=== PATIENT | male | born 1965 | race African-American/Black ===

== ENCOUNTER 2018-12-26 17:16 | Emergency (ER) | payer MEDICAID ==
[~2018-12-26] VITALS: Ht 180.3 cm; Wt 65.3 kg
[2018-12-26 17:28] VITALS: BP 107/62
--- NOTE | 2018-12-26 17:30 | NUR ---
EDITH KILPATRICK FROM [facility] C/O LOWER BACK PAIN RADIATES TO LOWER EXTREMITIES. HX:HIV, NEUROPATHY, MUSCLE ATROPHY. PATIENT A/OX1-2, BREATHING EVEN AND UNLABORED, NO SOB NOTED. ATTACHED TO THE MONITOR.
--- NOTE | 2018-12-26 17:55 | NUR ---
AMBULNOxana PRICE [phone] [facility] [id number]
--- NOTE | 2018-12-26 17:55 | NUR ---
SEEN BY DR. CASANOVA, CLEARED FOR DISCHARGE.
[2018-12-26] MEDS ORDERED: HYDROCODONE/APAP 5/325MG 1 EACH TABLET ONE (17:58)
[2018-12-26] MEDS ORDERED: HYDROCODONE/APAP 5/325MG 1 EACH TABLET PO ONE (18:00)
--- NOTE | 2018-12-26 18:00 | NUR ---
ETA 194*
--- NOTE | 2018-12-26 19:13 | NUR ---
ENDORSED TO JOSE VELÁZQUEZ FOR SHANNAN.
--- NOTE | 2018-12-26 19:59 | NUR ---
UPDATED AMBULNZ ETA 2015
== END 2018-12-26 20:26 | disposition home or self-care (01) ==
LOC: ER 17:19
DX: G89.29 Other chronic pain (principal); M54.5 Low back pain; F03.90 Unspecified dementia, unspecified severity, without behavioral disturbance, psychotic disturbance, mood disturbance, and anxiety; G62.9 Polyneuropathy, unspecified; Z60.2 Problems related to living alone

== ENCOUNTER 2019-06-20 15:39 | Inpatient (IN) | payer MEDICARE, OTHER ==
[~2019-06-20] VITALS: Ht 180.3 cm; Wt 64.9 kg
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
--- NOTE | 2019-06-20 16:12 | NUR ---
URINE SAMPLE SENT TO LAB.
[2019-06-20 16:16] LABS: BASOPHILS # (AUTO) 0.1 /CMM (0.0-0.2); BASOPHILS % (AUTO) 0.6 % (0.0-2.0); EOSINOPHILS % (AUTO) 8.4 % (0.0-6.0); HEMATOCRIT 46 % (39-51); HEMOGLOBIN 15.6 g/dL (13.5-17.5); LYMPHOCYTES # (AUTO) 2.8 /CMM (0.8-4.8); LYMPHOCYTES % (AUTO) 27.2 % (20.0-44.0); MEAN CORPUSCULAR HGB CONC 34 g/dl (31.0-36.0); MEAN CORPUSCULAR VOLUME 97 fL (80-96); MONOCYTES # (AUTO) 0.5 /CMM (0.1-1.30); MONOCYTES % (AUTO) 4.8 % (2.0-12.0); PLATELET COUNT (AUTO) 345 /CMM (150-450); RED BLOOD CELL COUNT(AUTO) 4.75 MIL/uL (4.5-6.0); WHITE BLOOD COUNT (AUTO) 10.2 K/uL (4.3-11.0)
[2019-06-20 16:22] LABS: APPEARANCE,URINE CLEAR (CLEAR); BILIRUBIN,URINE NEGATIVE (NEGATIVE); BLOOD, URINE NEGATIVE Ery/uL (NEGATIVE); COLOR,URINE YELLOW (YELLOW); KETONES,URINE NEGATIVE (NEGATIVE); LEUKOCYTE ESTERASE ,URINE NEGATIVE (NEGATIVE); NITRITE, URINE NEGATIVE (NEGATIVE); PH,URINE 5.5 (5.0-8.0); PROTEIN,URINE NEGATIVE (NEGATIVE); UGLUCOSE NEGATIVE (NEGATIVE); UROBILINOGEN,URINE 0.2 EU/dL (0.2)
[2019-06-20 16:24] LABS: CARBON DIOXIDE 31 mmol/L (21-32); CHLORIDE 103 mmol/L (98-107); CREATININE 0.8 mg/dL (0.6-1.3); GLUCOSE 84 mg/dL (74-106); SODIUM SERUM 139 mmol/L (136-145); UREA NITROGEN, BLOOD 17 mg/dL (7-18)
[2019-06-20 16:31] LABS: ALANINE AMINOTRANSFERASE 25 U/L (12-78); ALBUMIN 3.8 g/dL (3.4-5.0); ALKALINE PHOSPHATASE 70 U/L (46-116); ASPARTATE AMINOTRANSFERASE 12 U/L (15-37); BILIRUBIN,DIRECT 0.1 mg/dL (0.0-0.2); BILIRUBIN,TOTAL 0.3 mg/dL (0.2-1.0); SALICYLATE 2.9 mg/dL (2.8-20.0); TOTAL PROTEIN, SERUM 7.8 g/dL (6.4-8.2)
[2019-06-20 16:32] LABS: ALCOHOL, BLOOD < 3 mg/dL (0-0)
--- NOTE | 2019-06-20 16:42 | NUR ---
PATIENT GOING TO ROOM 215B
[2019-06-20] MEDS ORDERED: ACET-868 PO (17:46)
[2019-06-20] MEDS ORDERED: DOCU-141 PO (17:46)
[2019-06-20] MEDS ORDERED: DOLU50TA PO (17:46)
[2019-06-20] MEDS ORDERED: HYDR-4384 PO (17:46)
[2019-06-20] MEDS ORDERED: EMTR1TAB12 PO (17:46)
--- NOTE | 2019-06-20 17:48 | NUR ---
REPORT GIVEN TO JUANIS VELÁZQUEZ FOR SHANNAN.
--- NOTE | 2019-06-20 18:01 | NUR ---
PATIENT TRANSFERRED TO [facility]. NO DISTRESS NOTED.
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
--- NOTE | 2019-06-20 19:05 | NUR ---
GPS RN NOTE PER HISTORY & PHYSICAL RECORDS, PATIENT IS HIV POSITIVE & IS ON ROUTINE MEDICINES.
[2019-06-20 19:33] VITALS: BP 112/74
--- NOTE | 2019-06-20 19:36 | NUR ---
PT. WAS BROUGHT VIA A GURNEY AND TRANSPORTED BY ER STAFF. V/S TAKEN, CONTRABAND DONE AND DONE AZIZA MADE AWARE OF THE ADMISSION.
[2019-06-20 20:00] VITALS: BP 101/62
[2019-06-20 20:38] VITALS: BP 101/62
--- NOTE | 2019-06-20 20:52 | NUR ---
GPS RN NOTE CALLED [facility] , SPOKE TO AMELIA JANG FOR MED RECON & STATED SHE WILL RECONCILE THE MEDS.
[2019-06-21] MEDS ORDERED: MAGNESIUM HYDROXIDE 30 ML UDC PO PRN (00:30)
[2019-06-21] MEDS ORDERED: BLOOD SUGAR DIAGNOSTIC 1 EACH STRIP IN ONE (00:30)
[2019-06-21] MEDS ORDERED: ACETAMINOPHEN 325 MG TABLET PO PRN (00:30)
[2019-06-21] MEDS ORDERED: TEMAZEPAM 7.5 MG CAPSULE PO PRN (00:30)
--- NOTE | 2019-06-21 01:16 | NUR ---
REFUSED ACCU CHECK PATIENT REFUSED ACCU CHECK AT THIS TIME.
--- NOTE | 2019-06-21 04:09 | NUR ---
GPS RN NOTE PATIENT HAS BEEN SLEEPING. WILL CONTINUE TO MONITOR FOR SAFETY & BEHAVIOR.
--- NOTE | 2019-06-21 05:42 | NUR ---
GPS RN NOTE PATIENT IS AWAKE, UP IN A WHEELCHAIR, AGREED TO TAKE FACE PICTURE BUT REFUSED SKIN ASSESSMENT, STATED," I AM OK, MY SKIN IS GOOD, YOU DON'T NEED TO CHECK IT." DESPITE OF RISKS & BENEFITS EXPLANATIONS, PT. CONTINUED TO REFUSED SKIN ASSESSMENT.
--- NOTE | 2019-06-21 06:36 | NUR ---
REFUSED AM LABS PATIENT REFUSED AM LABS, STATED," I DO NOT HAVE ANY MORE BLOOD TO GIVE" DESPITE OF EXPLANATIONS, PT. CONTINUED TO REFUSE AM LAB BLOOD DRAW.
--- NOTE | 2019-06-21 06:51 | NUR ---
GPS RN NOTE PATIENT STATED THAT HE DOES NOT EAT PORK, WILL INFORM THE KITCHEN & AM RN.
--- NOTE | 2019-06-21 07:00 | NUR ---
GPS RN NOTE CALLED KITCHEN, SPOKE TO STACY & INFORMED HER THAT PATIENT REQUESTED NO PORK DIET, STACY ASSURED THAT SHE WILL INFORM HER FORESTRY BIOLOGY SPECIALIST TO UPDATE DIET ORDER. ALSO DOCUMENTED UNDER SUPPLEMENT SECTION NO PORK DIET SINCE THERE WAS NO OTHER OPTION TO DOCUMENT.
--- NOTE | 2019-06-21 07:32 | NUR ---
INFORMED FAMILY CALLED NEISHA (PT. SISTER) & LEFT A VOICEMAIL THAT PT. IS ADMITTED TO SO, GPS UNIT & ROOM NUMBER. PT. PREFERRED TO NOTIFY NEISHA THAN THE OTHER FAMILY MEMBER.
[2019-06-21 08:00] VITALS: BP 135/85
[2019-06-21] MEDS: DOCUSATE SODIUM 100 MG CAPSULE PO SCH (08:57)
[2019-06-21] MEDS: NICOTINE PATCH (21MG) 21 MG PATCH.TD24 TD SCH (08:57)
[2019-06-21] MEDS ORDERED: EMTRICITABINE/TENOFOVIR 1 TAB PO SCH ×2 (09:00)
[2019-06-21] MEDS ORDERED: TIVICAY 50 MG PO SCH (09:00)
[2019-06-21] MEDS: clonazePAM 0.5 MG TABLET PO PRN ×2 (09:10→13:37)
[2019-06-21] MEDS: HYDROCODONE/APAP 5/325MG 1 EACH TABLET PO PRN ×2 (09:11→16:03)
[2019-06-21 11:10] LABS: BASOPHILS # (AUTO) 0.1 /CMM (0.0-0.2); BASOPHILS % (AUTO) 1.1 % (0.0-2.0); EOSINOPHILS % (AUTO) 9.1 % (0.0-6.0); HEMATOCRIT 47 % (39-51); HEMOGLOBIN 15.7 g/dL (13.5-17.5); LYMPHOCYTES # (AUTO) 3.3 /CMM (0.8-4.8); LYMPHOCYTES % (AUTO) 29.5 % (20.0-44.0); MEAN CORPUSCULAR HGB CONC 34 g/dl (31.0-36.0); MEAN CORPUSCULAR VOLUME 98 fL (80-96); MONOCYTES # (AUTO) 0.5 /CMM (0.1-1.30); MONOCYTES % (AUTO) 4.9 % (2.0-12.0); NEUTROPHILS # (AUTO) 6.2 /CMM (1.8-8.9); NEUTROPHILS % (AUTO) 55.4 % (43.0-81.0); PLATELET COUNT (AUTO) 363 /CMM (150-450); RED BLOOD CELL COUNT(AUTO) 4.79 MIL/uL (4.5-6.0); WHITE BLOOD COUNT (AUTO) 11.1 K/uL (4.3-11.0)
[2019-06-21 11:17] LABS: CALCIUM, SERUM 9.1 mg/dL (8.5-10.1); CREATININE 0.8 mg/dL (0.6-1.3); POTASSIUM 4.1 mmol/L (3.5-5.1)
[2019-06-21 11:28] LABS: THYROID STIMULATING HORMONE 1.292 uIU/mL (0.358-3.74)
[2019-06-21] MEDS: TIVICAY 50 MG PO SCH ×2 (12:00→14:15)
[2019-06-21] MEDS: EMTRICITABINE 200 MG CAPSULE PO SCH ×2 (12:00→14:15)
[2019-06-21] MEDS: TENOFOVIR DISOPROXIL FUMARATE 300 MG TABLET PO SCH ×2 (12:00→14:15)
[2019-06-21 16:00] VITALS: BP 105/62
[2019-06-21] MEDS: DIVALPROEX SODIUM 250 MG TABLET.DR PO SCH ×2 (16:48→21:41)
[2019-06-21] MEDS: MAG HYDROX/AL HYDROX/SIMETH 30 ML UDC PO PRN ×2 (17:11→22:49)
[2019-06-21 20:00] VITALS: BP 99/57
[2019-06-21 20:06] VITALS: BP 99/57
[2019-06-21 21:30] VITALS: BP 105/62
[2019-06-21] MEDS ORDERED: OLANZAPINE 5 MG/TAB.RAPDIS PO SCH (22:00)
--- NOTE | 2019-06-21 22:17 | NUR ---
REFUSED ZYPREXA PATIENT REFUSED ZYPREXA 5MG, STATED, " I DO NOT WANT TO TAKE IT, NOTHING WILL HAPPEN TO ME". DESPITE OF RISKS & BENEFITS EXPLANATIONS, PT. CONTINUED TO REFUSE, EASILY AGITATED & ANXIOUS WHEN RE APPROACHED. WILL CONTINUE TO MONITOR.
--- NOTE | 2019-06-21 22:51 | NUR ---
PRN MAALOX GIVEN PATIENT STATED HE HAS INDIGESTION & WANTED TO TAKE MEDICINE, PRN MAALOX SUSP 30 ML PO GIVEN. WILL CONTINUE TO MONITOR FO ANY CHANGES.
[2019-06-22] MEDS: HYDROCODONE/APAP 5/325MG 1 EACH TABLET PO PRN ×3 (04:55→18:59)
--- NOTE | 2019-06-22 04:57 | NUR ---
PRN NORCO GIVEN PATIENT C/O LEFT LEG PAIN 12/17 & WANTED TO TAKE NORCO, NORCO 5-325 1 TAB PRN GIVEN. WILL REASSESS FOR EFFECTIVENESS.
--- NOTE | 2019-06-22 06:53 | NUR ---
REFUSED AM LAB PATIENT REFUSED AM LABS DESPITE OF RISKS & BENEFITS EXPLANATION.
[2019-06-22 08:00] VITALS: BP 99/67
[2019-06-22] MEDS: EMTRICITABINE 200 MG CAPSULE PO SCH (08:48)
[2019-06-22] MEDS: DOCUSATE SODIUM 100 MG CAPSULE PO SCH (08:48)
[2019-06-22] MEDS: TIVICAY 50 MG PO SCH (08:48)
[2019-06-22] MEDS: DIVALPROEX SODIUM 250 MG TABLET.DR PO SCH ×2 (08:48→21:44)
[2019-06-22] MEDS: TENOFOVIR DISOPROXIL FUMARATE 300 MG TABLET PO SCH (08:49)
[2019-06-22] MEDS: NICOTINE PATCH (21MG) 21 MG PATCH.TD24 TD SCH (08:53)
[2019-06-22] MEDS: OLANZAPINE 5 MG/TAB.RAPDIS PO SCH ×3 (13:30→17:33)
[2019-06-22 16:00] VITALS: BP 100/65
--- NOTE | 2019-06-22 19:00 | NUR ---
PATIENT C/O LEFT LEG PAIN 10/10 MEDICATED WITH NORCO 5MG/325 WILL CONTINUE TO MONITOR .
[2019-06-22 20:00] VITALS: BP 95/54
[2019-06-22 20:38] VITALS: BP 95/54
--- NOTE | 2019-06-22 22:32 | NUR ---
GPS RN NOTE ORACLE MANAGER DUSTIN CALLED TO INFORM THAT CREATININE WILL BE CANCELLED SINCE PATIENT HAS BEEN REFUSING LABS.
[2019-06-23] MEDS: HYDROCODONE/APAP 5/325MG 1 EACH TABLET PO PRN ×3 (05:42→18:39)
--- NOTE | 2019-06-23 05:44 | NUR ---
PRN NORCO GIVEN PATIENT STATED HE HAS LEFT LEG PAIN & WANTS TO TAKE NORCO ONLY, PER PT. PAIN LEVEL IS 7/10. PRN NORCO 5-325 MG PO GIVEN. VITALS CHECKED 105/64, 71, 20, 97.5, 96% ON RA. PATIENT IS UP IN A WHEELCHAIR, SNACK & JUICE GIVEN. WILL CONTINUE TO MONITOR.
[2019-06-23 08:00] VITALS: BP 105/64
[2019-06-23] MEDS: DOCUSATE SODIUM 100 MG CAPSULE PO SCH (09:07)
[2019-06-23] MEDS: OLANZAPINE 5 MG/TAB.RAPDIS PO SCH ×2 (09:08→16:48)
[2019-06-23] MEDS: DIVALPROEX SODIUM 250 MG TABLET.DR PO SCH ×2 (09:08→21:16)
[2019-06-23] MEDS: NICOTINE PATCH (21MG) 21 MG PATCH.TD24 TD SCH (09:08)
[2019-06-23] MEDS: EMTRICITABINE 200 MG CAPSULE PO SCH (09:10)
[2019-06-23] MEDS: TIVICAY 50 MG PO SCH (09:10)
[2019-06-23] MEDS: TENOFOVIR DISOPROXIL FUMARATE 300 MG TABLET PO SCH (09:10)
--- NOTE | 2019-06-23 10:57 | NUR ---
Facility Contact: VINICIUS called [facility] and was informed to call back because the admissions department was busy.
--- NOTE | 2019-06-23 11:05 | NUR ---
Family Contact: SW called the pts sister, Lois ([phone]), and left a voicemail that stated that the SW would like to speak to her regarding the pts treatment.
--- NOTE | 2019-06-23 12:05 | NUR ---
Substance Abuse Intervention: VINICIUS conducted a substance abuse intervention with the pt due to the pts cannabis and opiate use. Pt denied use and stated that he has not abused drugs and would not do that because drugs are a sickness.
--- NOTE | 2019-06-23 12:20 | NUR ---
Initial Discharge Plan: Pt currently resides at [facility] located at [facility] [id number]; . Per pt, he states that he is homeless. SW will work with the pt and the MD regarding appropriate discharge planning. SW will form a safe and proper discharge plan.
--- NOTE | 2019-06-23 12:20 | NUR ---
Family Contact: SW called the pts niece, Erin ([phone]), and she stated that she will call the SW back later because she was currently busy.
[2019-06-23 16:00] VITALS: BP 114/61
[2019-06-23 20:35] VITALS: BP 103/57
[2019-06-24] MEDS: HYDROCODONE/APAP 5/325MG 1 EACH TABLET PO PRN ×3 (07:25→21:17)
[2019-06-24 08:00] VITALS: BP 103/59
[2019-06-24] MEDS: OLANZAPINE 5 MG/TAB.RAPDIS PO SCH ×2 (08:26→17:31)
[2019-06-24] MEDS: DIVALPROEX SODIUM 250 MG TABLET.DR PO SCH ×2 (08:26→20:09)
[2019-06-24] MEDS: NICOTINE PATCH (21MG) 21 MG PATCH.TD24 TD SCH (08:26)
[2019-06-24] MEDS: TENOFOVIR DISOPROXIL FUMARATE 300 MG TABLET PO SCH (08:27)
[2019-06-24] MEDS: EMTRICITABINE 200 MG CAPSULE PO SCH (08:27)
[2019-06-24] MEDS: TIVICAY 50 MG PO SCH (08:27)
[2019-06-24] MEDS: DOCUSATE SODIUM 250 MG CAPSULE PO SCH (09:40)
--- NOTE | 2019-06-24 14:30 | NUR ---
Facility Contact: SW called [facility] and spoke to Cleo who stated that the pt and the pts sister do not want the pt to return to the facility.
--- NOTE | 2019-06-24 14:38 | NUR ---
SNF Referral: VINICIUS faxed a referral to [facility] with attn to Ariane to the fax number: [phone].
--- NOTE | 2019-06-24 15:30 | NUR ---
SNF Contact: Ping ([phone]) from [facility] called the SW and stated that the pt cannot be accepted at this time due to a lack of a male bed and she stated that she is not sure when a bed will become available.
--- NOTE | 2019-06-24 15:30 | NUR ---
Group Note: SW encouraged pt to participate in group on 06/24/19 at 2pm discussing discharge planning. Pt appeared to be in a distressed state. Pt was preoccupied on his discharge but was also preoccupied with another pt who he claimed was calling him names. Pt refused to participate in group and informed the SW that he wanted to be discharged as soon as possible. SW informed him that he cannot return to his previous facility and therefore she is seeking alternative placement.
[2019-06-24 16:00] VITALS: BP 101/68
[2019-06-24 20:06] VITALS: BP 99/66
[2019-06-24 21:10] VITALS: BP 100/64
--- NOTE | 2019-06-24 21:21 | NUR ---
GPS RN NOTES: PT C/O OF 12/17 LOWER BACK PAIN. PT STATED, " I HAVE PAIN RIGHT NOW. I NEED NARCO TO HELP ME WITH THIS PAIN." OFFERED NARCO 5/325 MG PO PRN ORDERED. NO S/S OF RESP DISTRESS BREATHING EVEN AND UNLABORED. PT TOLERATED MEDICATION WELL. CONTINUE TO MONITOR.
[2019-06-25 08:00] VITALS: BP 105/63
[2019-06-25] MEDS: EMTRICITABINE 200 MG CAPSULE PO SCH (08:03)
[2019-06-25] MEDS: TIVICAY 50 MG PO SCH (08:03)
[2019-06-25] MEDS: DIVALPROEX SODIUM 250 MG TABLET.DR PO SCH ×2 (08:03→20:37)
[2019-06-25] MEDS: DOCUSATE SODIUM 250 MG CAPSULE PO SCH (08:03)
[2019-06-25] MEDS: TENOFOVIR DISOPROXIL FUMARATE 300 MG TABLET PO SCH (08:03)
[2019-06-25] MEDS: OLANZAPINE 5 MG/TAB.RAPDIS PO SCH ×2 (08:03→16:39)
[2019-06-25] MEDS: HYDROCODONE/APAP 5/325MG 1 EACH TABLET PO PRN ×3 (08:04→20:38)
[2019-06-25] MEDS: NICOTINE PATCH (21MG) 21 MG PATCH.TD24 TD SCH (08:04)
--- NOTE | 2019-06-25 08:08 | NUR ---
PRN NORCO GIVEN FOR PAIN TO LLE
--- NOTE | 2019-06-25 10:12 | NUR ---
Probable Cause (PC) Hearing Notification: VINICIUS called the pts niece, Erin ([phone]), and informed her that the pt has a hearing today and explained the potential outcomes. VINICIUS also took the opportunity to inform the pts niece about the pts discharge plan. VINICIUS stated that the facilities the pt has been referred to has not accepted the pt and she stated that she would like the SW to send a referral to [facility].
--- NOTE | 2019-06-25 10:57 | NUR ---
PATIENT IS VERBALLY ABUSIVE TOWARDS STAFF MEMBERS AND EXPRESSES RACIAL SLURS
--- NOTE | 2019-06-25 13:11 | NUR ---
SNF Referral: SW faxed a referral to two facilities listed below: [facility] to the fax number: [phone] [facility] to the fax number: [phone].
--- NOTE | 2019-06-25 14:41 | NUR ---
PRN NORCO GIVEN FOR 7/10 PAIN TO LEFT LEG
--- NOTE | 2019-06-25 15:45 | NUR ---
Group Note: SW encouraged pt to participate in group on 06/25/19 at 2pm discussing social supports. Pt appeared to be in a distressed state. Pt was preoccupied on his discharge and continuously stated that he wanted to return to his facility. SW informed him that she can talk to him about his discharge after group. Pt stated that he did not want to talk about his social supports because that is not important to him at this moment. He stated that he was tired of being called names by the other patients. Pt refused to participate in group and informed the SW that he wanted to be discharged as soon as possible.
--- NOTE | 2019-06-25 15:56 | NUR ---
Assumed service, pt. is aware in bed, responsive to staffs, no sign of distress and no agitation noted. Will continue to monitor for safety.
[2019-06-25 16:00] VITALS: BP 103/67
[2019-06-25 22:10] VITALS: BP 101/62
[2019-06-26] MEDS: HYDROCODONE/APAP 5/325MG 1 EACH TABLET PO PRN (07:27)
[2019-06-26] MEDS: TIVICAY 50 MG PO SCH (07:59)
[2019-06-26 08:00] VITALS: BP 110/65
[2019-06-26] MEDS: EMTRICITABINE 200 MG CAPSULE PO SCH (08:01)
[2019-06-26] MEDS: TENOFOVIR DISOPROXIL FUMARATE 300 MG TABLET PO SCH (08:02)
[2019-06-26] MEDS: OLANZAPINE 5 MG/TAB.RAPDIS PO SCH ×2 (08:09→16:42)
[2019-06-26] MEDS: DOCUSATE SODIUM 250 MG CAPSULE PO SCH (08:09)
[2019-06-26] MEDS: NICOTINE PATCH (21MG) 21 MG PATCH.TD24 TD SCH (08:09)
[2019-06-26] MEDS: DIVALPROEX SODIUM 250 MG TABLET.DR PO SCH (08:09)
--- NOTE | 2019-06-26 08:24 | NUR ---
SNF Contact: Chan ([phone]) from [facility] called the SW and stated that pts benefits cannot be run. SW stated that she will attempt to get information from [facility] Admitting Department.
--- NOTE | 2019-06-26 10:46 | NUR ---
Facility Contact: VINICIUS called [facility] and spoke to Cleo and informed her that the pt has a return letter agreement and the pt stated that he would like to return to their facility. She stated that she wants the SW to send updated notes and that they would make a decision from there. VINICIUS emailed the notes as requested to [email or web address]
--- NOTE | 2019-06-26 12:00 | NUR ---
Family Contact: VINICIUS called the pts niece, Erin ([phone]), and informed her that the pt will be discharged back to [facility] ([facility]) and she stated that she accepts that discharge plan.
--- NOTE | 2019-06-26 12:46 | NUR ---
GPS/RN PT TOOK HALDOL PO AND ZYPREXA PO ONLY FOR 1300 Addendum: 06/26/19 at 1248 by TRENT ALVARADO RN WRONG PT CHARTED. THIS NOTE IS FOR DIFFERENT PT
--- NOTE | 2019-06-26 13:34 | NUR ---
DR. WILLARD GAVE AN ORDER TO D/C HOLD AND D/C TO [facility] AND [facility], TO CONTINUE SAME MEDS INCLUDING PRN AND TO FOLLOW UP WITH PSYCH AND MEDICAL DOCTORS.
--- NOTE | 2019-06-26 13:55 | NUR ---
Discharge Note: Pt is being discharged to [facility] located at [address] [place] [address]; . Pt will be transported via [facility] at 6pm. Pts Erin christopher ([phone]), was informed of the discharge. Upon discharge, the pt appeared to be in a euthymic mood and presented with a calm affect. Pt denied both suicidal and homicidal ideation as well as auditory and visual hallucinations. Pt will be under the care of psychiatrist, Dr. Peter Cruz, located at [address] [facility] [address] [address]; and fire battalion chief, Dr. Raul Ragland, located at [address], [place] [address]; . Addendum: 06/26/19 at 1357 by MAK COLVIN Pt was provided with the following substance abuse referrals. [facility] [address] [place] [address] Tel. [facility] [address] [place] Provider Mental Health Treatment Tele-dermatology HIV Services Telemedicine Services [place] [address] [place] [address] [facility] [address] [place] [address]
[2019-06-26 16:00] VITALS: BP 100/62
--- NOTE | 2019-06-26 17:54 | NUR ---
GPS/RN PT IS READY FOR D/C . REFUSED PICTURES, SKIN ASSESSMENT. NO SI OR HI AND AVH AT THE TIEM OF D/C. REPORT GIVEN TO JUAN LUIS VELÁZQUEZ AT [facility] located at [facility] [id number]; . Pt will be transported via [facility] at 6pm. PROPERTY RETURNED. FAMILY NOTIFIED OF D/C.
== END 2019-06-26 18:30 | DRG 885 ==
LOC: ER 15:40 → GPS 17:44
PROVIDERS: ADMIT Psychiatry & Neurology Psychiatry; ATTEND Student in an Organized Health Care Education/Training Program
DX: F39 Unspecified mood [affective] disorder (principal); F03.90 Unspecified dementia, unspecified severity, without behavioral disturbance, psychotic disturbance, mood disturbance, and anxiety; F12.10 Cannabis abuse, uncomplicated; F29 Unspecified psychosis not due to a substance or known physiological condition; F17.210 Nicotine dependence, cigarettes, uncomplicated; G62.9 Polyneuropathy, unspecified
CPT/HCPCS: 36415; 80048-TC; 80061-TC; 80076-TC; 80305; 81000-TC; 84443-TC; 85025-TC; 87081-TC; 97530-TC; G0480